=== PATIENT | male | born 1965 | race Caucasian/White ===

== ENCOUNTER → 2023-03-07 16:05 | Outpatient (REF) | payer BC, SELFPAY ==
[2023-03-07 17:25] LABS: % Basophils 0.6 % (0-2); % Eosinophils 1.8 % (0-6); % Immature Granulocytes 0.4 % (0-0.5); % Lymphocytes 28.5 % (20.5-51.1); % Monocytes 16.9 % (1.7-9.3); % Neutrophils 51.8 % (42.2-75.2); Absolute Eosinophils 0.1 10^3/uL (0-0.7); Absolute Lymphocytes 1.4 10^3/uL (1.2-3.4); Absolute Monocytes 0.8 10^3/uL (0.1-0.6); Absolute Neutrophils 2.6 10^3/uL (1.4-6.5); Hematocrit 40.7 % (39.0-52.0); Hemoglobin 14.3 g/dL (13.0-18.0); Mean Corp Hgb Conc. 35.1 g/dL (33.0-37.0); Mean Corpuscular Hgb 33.6 pg (27.0-31.0); Mean Corpuscular Volume 95.5 fL (80.0-94.0); Mean Platelet Volume 9.5 fL (7.4-10.4); Nucleated Red Blood Cells % 0 % (-); Platelet Count 216 10^3/uL (130-400); Red Blood Cell Count 4.26 10^6/uL (4.70-6.10); Red Cell Dist. Width 12.2 % (11.5-14.5)
[2023-03-07 17:43] LABS: Urine Albumin Trace (Neg - Trace); Urine Bilirubin Negative (Negative); Urine Character Clear (Clear); Urine Color Yellow; Urine Glucose Negative (Negative); Urine Ketone Negative (Negative); Urine Leukocyte Negative (Negative); Urine Nitrite Negative (Negative); Urine Occult Blood Negative (Negative); Urine Urobilinogen Negative (Neg - 1+)
[2023-03-07 17:56] LABS: ALT (SGPT) 44 U/L (0-50); AST (SGOT) 68 U/L (17-59); Albumin 4.5 g/dl (3.5-5.0); Alkaline Phosphatase 94 U/L (38-126); Blood Urea Nitrogen 13 mg/dl (9-20); Calcium 9.9 mg/dl (8.4-10.2); Carbon Dioxide 29 mmol/L (22-30); Chloride 98 mmol/L (98-107); GGTP 251 U/L (15-73); Glucose 79 mg/dl (70-99); HDL Cholesterol 103 mg/dl; LDL Cholesterol, Calculated 124 mg/dl; Potassium 4.5 mmol/L (3.5-5.1); Sodium 133 mmol/L (135-145); Total Bilirubin 0.8 mg/dl (0.2-1.3); Total Cholesterol 254 mg/dl (50-199); Total Protein 8.4 g/dl (6.3-8.2); Triglyceride 139 mg/dl (10-149); Very Low Density Lipoprotein 27 mg/dl (0-30); eGFR > 60.00
[2023-03-07 18:25] LABS: PSA, Total - Screen 0.36 ng/ml (0.0-4.0); TSH Reflex To Free T4 1.38 uIU/ml (0.47-4.68)
== END ==
LOC: REG 16:05
PROVIDERS: ATTENDING PHYSICIAN Family Medicine; REFERRING PHYSICIAN Internal Medicine Rheumatology
DX: Z71.89 Other specified counseling (principal); F10.10 Alcohol abuse, uncomplicated; D68.69 Other thrombophilia; I10 Essential (primary) hypertension; M06.00 Rheumatoid arthritis without rheumatoid factor, unspecified site; I48.0 Paroxysmal atrial fibrillation; N41.0 Acute prostatitis; R74.8 Abnormal levels of other serum enzymes
CPT/HCPCS: 36415; 80053; 80061; 81003; 82977; 84443; 85025; G0103

== ENCOUNTER → 2023-12-01 10:40 | Outpatient (REF) | payer BC, SELFPAY ==
[2023-12-01 11:43] LABS: % Basophils 0.5 % (0-2); % Eosinophils 5.4 % (0-6); % Immature Granulocytes 0.3 % (0-0.5); % Lymphocytes 40.6 % (20.5-51.1); % Monocytes 16.8 % (1.7-9.3); % Neutrophils 36.4 % (42.2-75.2); Absolute Eosinophils 0.2 10^3/uL (0-0.7); Absolute Lymphocytes 1.6 10^3/uL (1.2-3.4); Absolute Monocytes 0.7 10^3/uL (0.1-0.6); Absolute Neutrophils 1.4 10^3/uL (1.4-6.5); Hematocrit 40.7 % (39.0-52.0); Hemoglobin 14.5 g/dL (13.0-18.0); Mean Corp Hgb Conc. 35.6 g/dL (33.0-37.0); Mean Corpuscular Hgb 34.9 pg (27.0-31.0); Mean Corpuscular Volume 97.8 fL (80.0-94.0); Mean Platelet Volume 9.5 fL (7.4-10.4); Nucleated Red Blood Cells % 0 % (-); Platelet Count 206 10^3/uL (130-400); Red Blood Cell Count 4.16 10^6/uL (4.70-6.10); Red Cell Dist. Width 11.8 % (11.5-14.5); White Blood Cell Count 3.9 10^3/uL (4.8-10.8)
[2023-12-01 11:52] LABS: Erythrocyte Sed Rate 25 mm/hour (0-20)
[2023-12-01 12:37] LABS: ALT (SGPT) 65 U/L (0-50); AST (SGOT) 118 U/L (17-59); Albumin 3.8 g/dl (3.5-5.0); Alkaline Phosphatase 120 U/L (38-126); Blood Urea Nitrogen 4 mg/dl (9-20); Calcium 9.2 mg/dl (8.4-10.2); Carbon Dioxide 28 mmol/L (22-30); Chloride 96 mmol/L (98-107); Glucose 82 mg/dl (70-99); Potassium 5.1 mmol/L (3.5-5.1); Sodium 133 mmol/L (135-145); Total Bilirubin 0.6 mg/dl (0.2-1.3); Total Protein 7.2 g/dl (6.3-8.2); eGFR > 60.00
== END ==
LOC: REG 10:40
PROVIDERS: ATTENDING PHYSICIAN Internal Medicine Rheumatology; FAMILY PHYSICIAN Family Medicine
DX: M06.00 Rheumatoid arthritis without rheumatoid factor, unspecified site (principal); Z79.899 Other long term (current) drug therapy
CPT/HCPCS: 36415; 80053; 85025; 85652; 86140

== ENCOUNTER → 2023-12-22 10:09 | Outpatient (REF) | payer BC, SELFPAY | LOC: RCS 10:09 | PROVIDERS: ATTENDING PHYSICIAN Internal Medicine Cardiovascular Disease; FAMILY PHYSICIAN Family Medicine | DX: I48.11 Longstanding persistent atrial fibrillation (principal) | CPT/HCPCS: 93306 ==

== ENCOUNTER → 2024-05-10 11:30 | Outpatient (REF) | payer BC, SELFPAY ==
[2024-05-10 12:38] LABS: % Basophils 0.4 % (0-2); % Eosinophils 3.1 % (0-6); % Immature Granulocytes 0.4 % (0-0.5); % Lymphocytes 26.6 % (20.5-51.1); % Monocytes 11.9 % (1.7-9.3); % Neutrophils 57.6 % (42.2-75.2); Absolute Eosinophils 0.2 10^3/uL (0-0.7); Absolute Lymphocytes 1.3 10^3/uL (1.2-3.4); Absolute Monocytes 0.6 10^3/uL (0.1-0.6); Absolute Neutrophils 2.8 10^3/uL (1.4-6.5); Mean Corp Hgb Conc. 35.1 g/dL (33.0-37.0); Mean Corpuscular Hgb 34.7 pg (27.0-31.0); Mean Corpuscular Volume 98.7 fL (80.0-94.0); Mean Platelet Volume 9.6 fL (7.4-10.4); Nucleated Red Blood Cells % 0 % (-); Platelet Count 231 10^3/uL (130-400); Red Blood Cell Count 3.75 10^6/uL (4.70-6.10); Red Cell Dist. Width 11.6 % (11.5-14.5); White Blood Cell Count 4.8 10^3/uL (4.8-10.8)
[2024-05-10 13:13] LABS: Erythrocyte Sed Rate 36 mm/hour (0-20)
[2024-05-10 13:25] LABS: ALT (SGPT) 63 U/L (0-50); AST (SGOT) 65 U/L (17-59); Albumin 3.9 g/dl (3.5-5.0); Alkaline Phosphatase 100 U/L (38-126); Blood Urea Nitrogen 9 mg/dl (9-20); Calcium 9.2 mg/dl (8.4-10.2); Carbon Dioxide 27 mmol/L (22-30); Chloride 101 mmol/L (98-107); Glucose 106 mg/dl (70-99); Potassium 4.6 mmol/L (3.5-5.1); Sodium 134 mmol/L (135-145); Total Bilirubin 0.6 mg/dl (0.2-1.3); Total Protein 7.1 g/dl (6.3-8.2); eGFR > 60.00
== END ==
LOC: RAD 11:30
PROVIDERS: ATTENDING PHYSICIAN Internal Medicine Rheumatology; FAMILY PHYSICIAN Family Medicine
DX: L40.50 Arthropathic psoriasis, unspecified (principal)
CPT/HCPCS: 36415; 73560; 73565; 80053; 85025; 85652; 86140

== ENCOUNTER 2024-06-06 13:31 | Inpatient (IN) | payer BC, SELFPAY ==
[2024-06-06] VITALS (10 sets, daily range): BP systolic 90–125; BP diastolic 67–82; BMI 25.9; BMI 25.2
--- NOTE | 2024-06-06 09:08 | ED.GENMED ---
History of Present Illness
General
Chief Complaint: Weakness
Source: patient
Exam Limitations: none
Time Seen by Provider: 06/06/24 08:50
History of Present Illness
History of Present Illness:
59-year-old male with history of A-fib on Eliquis, history of rheumatoid arthritis on Enbrel presents with diffuse myalgias recent fever fatigue. He had urinary symptoms earlier this week with urgency and dysuria. He was diagnosed with a UTI by
the family doctor and started on Cipro. He has been on Cipro for 3 days. Fever has improved however he notes more discomfort throughout his joints and body. He notes a slight runny nose and cough. No chest pain or shortness of breath. The onset
of his illness he also had an episode of loose stool. Temperature as high as 101.4 at home. No other complaints at this time
Past History
Past History
ED Past Medical History: Arrthythmia (Atrial fibrillation), GERD, HTN, Hypercholesterolemia and Other (Peptic ulcer disease, psoriatic arthritis)
ED Past Surgical History: None
Social History
Tobacco: Smoker
Alcohol: Daily
Drug: None
Personal:
Living: with family
Employment: Employed ([employer])
Phy Exam
Physical Exam
Physical Exam:
General: Well-appearing male no acute respiratory distress
HEENT: Normocephalic atraumatic
Heart: Regular rate and rhythm
Lungs: Clear no wheeze abdomen is soft nontender nondistended
No costovertebral angle tenderness
Extremities: No cyanosis
Course
Orders/Labs/Results
Orders:
Orders
06/06/24 09:08
CR Chest - 2 Views Urgent
Comment:
Reason For Exam: fever
06/06/24 09:16
COVID-19 Antigen Urgent
Source: Nasal Swab
CRP [C-Reactive Protein] Urgent
Complete Blood Count/With Diff Urgent
Comprehensive Metabolic Panel Urgent
Lyme Progressive Urgent
Sed Rate [Erythrocyte Sed Rate] Urgent
Blood Culture Q30M
LORENZO Source: Blood/Venous
Specimen Description:
Blood Culture Q30M
LORENZO Source: Blood/Venous
Specimen Description:
Influenza A+B Rapid Molecular Urgent
LORENZO Source: Nasal Swab
Specimen Description:
06/06/24 09:17
Lactic Acid Urgent
Urinalysis Reflex To Culture Urgent
Date Specimen was Collected: 06/06/24
Time Specimen was Collected: 09:10
Urine Microscopic Reflex Cult Urgent
Urine Culture Urgent
LORENZO Source: U
Specimen Description:
Date Specimen was Collected: 06/06/24
Time Specimen was Collected: 09:10
06/06/24 12:47
CefTRIAXone [Rocephin] 1,000 mg IV NOW STA
NSS 1000mL Bolus over 1 hr 0.9% Sodium Chloride 1000 ml [Nss] 1,000 ml IV BOLUS
Abnormal Lab Results
06/06/24 06/06/24
09:16 09:17
RBC 3.71 L 10^6/uL
(4.70-6.10)
Hct 36.4 L %
(39.0-52.0)
MCV 98.1 H fL
(80.0-94.0)
MCH 35.0 H pg
(27.0-31.0)
Lymphocytes % 19.8 L %
(20.5-51.1)
ESR 58 H mm/hour
(0-20)
Sodium 132 L mmol/L
(135-145)
C-Reactive Protein 119.50 H mg/L
(0.0-10.00)
Albumin 3.4 L g/dl
(3.5-5.0)
Ur Occult Blood Reflex 3+ A
(Negative)
Leukocyte Esterase Rfl 2+ A
(Negative)
Urine RBC 7-10 A /HPF
(0-2)
Urine WBC (Reflex) 21-25 A /HPF
(0-5)
Urine Bacteria (Reflex) Few A
(Negative)
Urine Albumin (Reflex) 2+ A
(Neg - Trace)
06/06/24 09:16
06/06/24 09:16
Vital Signs
Initial and Last Documented VS:
Initial Vital Signs
Temp Pulse Resp BP Pulse Ox
99.0 F 95 18 125/75 97
06/06/24 07:28 06/06/24 07:28 06/06/24 07:28 06/06/24 07:28 06/06/24 07:28
Last Documented Vital Signs
Temp Pulse Resp BP Pulse Ox
98.5 F 95 20 110/72 97
06/06/24 09:35 06/06/24 09:35 06/06/24 09:35 06/06/24 11:13 06/06/24 11:30
MDM/Problems Addressed
Differential Diagnosis Includes:
Patient with diffuse myalgias recent fever history of rheumatoid arthritis recent treatment for urinary tract infection. Consider extension of UTI versus sepsis versus flare of her RA versus flu or COVID. Check labs including blood cultures lactic
acid urinalysis inflammatory marker
*Critical Care Note
Total Time (30-74mins, 75-104mins- exclusive of procedures): Not Applicable
Update Note
Update Note:
CRP 119. White blood cell count normal. Patient still with myalgias and UTI present on urinalysis. Patient is immunosuppressed reported recent fever on Cipro not responding to oral antibiotics. Fluids ordered will order Rocephin admit to hospice
ED Attending Note
-
Portions of this chart may have been created with voice recognition software.� Occasional wrong word or��sound alike� substitutions may have occurred due to the inherent limitations of voice recognition software.
Discharge Plan
Departure
Patient Disposition: Admit
Date of Disposition: 06/06/24
Time of Disposition: 12:48
Presentation/result/management discussed w/ accepting MD/DO: Hospitalist
Discharge Problem:
Acute UTI
Prescriptions:
No Action
multivitamin with folic acid [Tab-A-Jay] 1 TABLET tablet
1 tab PO DAILY
omeprazole magnesium [Prilosec OTC] 20 MG tablet,delayed release (DR/EC)
20 mg PO BID Qty: 60 2RF
vitamin B complex 1 TAB tablet
1 tab PO DAILY
melatonin 5 MG tablet
5 mg PO HS
co Q10-red yeast rice 1 EACH capsule
2 ea PO DAILY
omega 8-mvl-luz-fish oil [Fish Oil] 1 EACH capsule
1 ea PO DAILY
biotin 5,000 MCG tablet,disintegrating
5,000 mcg PO DAILY
prednisone 5 MG tablet
2.5 mg PO HS
Eliquis 5 MG tablet
5 mg PO BID
cholecalciferol (vitamin D3) 5,000 UNIT tablet,disintegrating
5,000 unit PO BID
diltiazem HCl 120 MG capsule,extended release 24hr
120 mg PO DAILY Qty: 30 5RF
Rx Instructions:
your dose of cardizem has decreased
lisinopril 5 MG tablet
5 mg PO DAILY Qty: 30 5RF
dofetilide 500 MCG capsule
500 mcg PO Q12 Qty: 60 5RF
sildenafil 50 mg Tablet
50 mg PO DAILY
Referrals:
Isauro Huizar MD [Family Provider] -
Interventions
Interventions:
*Risk Screen - Suicide Last Done: 06/06/24 07:28
*General Assessment Last Done: 06/06/24 07:28
*Neglect/Abuse Screening Last Done: 06/06/24 09:35
*ED- Fall Risk Assessment Last Done: 06/06/24 09:35
*ED COVID-19 Vaccine History Last Done: 06/06/24 07:28
ED- Cardiac Assessment Last Done: 06/06/24 09:35
ED- Neurological Assessment Last Done: 06/06/24 09:35
ED- Pulmonary Assessment Last Done: 06/06/24 09:35
Discharge Date and Time
Print Language: SIER[place] LEONE[place]
[2024-06-06 09:56] LABS: Lactic Acid 0.9 mmol/L (0.7-2.0)
[2024-06-06 10:01] LABS: ALT (SGPT) 31 U/L (0-50); AST (SGOT) 44 U/L (17-59); Albumin 3.4 g/dl (3.5-5.0); Alkaline Phosphatase 85 U/L (38-126); Blood Urea Nitrogen 14 mg/dl (9-20); Calcium 9.2 mg/dl (8.4-10.2); Carbon Dioxide 24 mmol/L (22-30); Chloride 100 mmol/L (98-107); Estimated Creatinine Clearance 92 ml/min; Glucose 85 mg/dl (70-99); Potassium 4.1 mmol/L (3.5-5.1); Sodium 132 mmol/L (135-145); Total Bilirubin 1.2 mg/dl (0.2-1.3); Total Protein 6.9 g/dl (6.3-8.2); eGFR > 60.00
[2024-06-06 10:03] LABS: % Eosinophils 0.7 % (0-6); % Immature Granulocytes 0.3 % (0-0.5); % Lymphocytes 19.8 % (20.5-51.1); % Monocytes 6.5 % (1.7-9.3); % Neutrophils 72.7 % (42.2-75.2); Absolute Lymphocytes 1.2 10^3/uL (1.2-3.4); Absolute Monocytes 0.4 10^3/uL (0.1-0.6); Absolute Neutrophils 4.2 10^3/uL (1.4-6.5); Hematocrit 36.4 % (39.0-52.0); Mean Corp Hgb Conc. 35.7 g/dL (33.0-37.0); Mean Corpuscular Volume 98.1 fL (80.0-94.0); Mean Platelet Volume 10.1 fL (7.4-10.4); Nucleated Red Blood Cells % 0 % (-); Platelet Count 173 10^3/uL (130-400); Red Blood Cell Count 3.71 10^6/uL (4.70-6.10); Red Cell Dist. Width 11.7 % (11.5-14.5); White Blood Cell Count 5.8 10^3/uL (4.8-10.8)
[2024-06-06 10:11] LABS: COVID-19 Antigen Negative (Negative)
[2024-06-06 12:12] LABS: Urine Albumin 2+ (Neg - Trace); Urine Bilirubin Negative (Negative); Urine Character Clear (Clear); Urine Color Yellow; Urine Glucose Negative (Negative); Urine Ketone Negative (Negative); Urine Leukocyte 2+ (Negative); Urine Nitrite Negative (Negative); Urine Occult Blood 3+ (Negative); Urine Urobilinogen Negative (Neg - 1+); Urine pH 6.5 (5.0-9.0)
[2024-06-06 12:30] LABS: Urine White Cell 21-25 /HPF (0-5)
[2024-06-06 12:31] LABS: Urine Bacteria Few (Negative)
[2024-06-06 12:34] LABS: Erythrocyte Sed Rate 58 mm/hour (0-20)
--- NOTE | 2024-06-06 12:58 | HPS.HSE ---
Addendum entered and electronically signed by ASAF Frey 06/06/24 15:06:
patient not on tikosyn and prednisone;
Original Note:
Family Physician
-
Family Physician: Isauro Huizar
Chief Complaint
-
generalized achiness
urinary burning and urgency
History of Present Illness
59-year-old male with history of A-fib on Eliquis, history of rheumatoid arthritis on Enbrel, hypertension, GERD presents with diffuse myalgias recent fever fatigue. Patient started with urinary urgency and dysuria Monday afternoon. Patient was
evaluated by PCP on Monday and was started on Cipro for 3 days. Patient took 2 doses already. Patient started having fever of 101 since Monday. He vomited on Monday. Denied any diarrhea, constipation. Patient denies any headache, dizzy or
syncope. Patient denied abdominal pain. Patient denied chest pain or short of breath. He noted no worsening body aches. Patient stated runny nose and sneezing for past few days due to seasonal allergies.
Patient tested positive for UA. Started on ceftriaxone. Admitting for further management
Medical History
Past Medical History
Past Medical History: Reports Other
Additional Past Medical History:
GI bleed
Duodenal ulcer
A-fib
Deficiency anemia
GERD
Psoriasis
Hypertension
Hyperlipidemia
Rheumatoid arthritis
Past Surgical History: Reports Other
Additional Past Surgical History:
Cardiac ablation, cardioversion
Social History
Tobacco: Smoker (2 cigarettes daily)
Alcohol: Occasional
Drug: None
Personal:
Living: With Family
Family History
Family History: Not pertinent
Allergies / Home Medications
Allergies reflects when Allergies were last updated in [employer].
Home Medications with original date entered in [employer]
Allergy/Medication List:
Allergies
Allergy/AdvReac Type Severity Reaction Status Date / Time
celecoxib [From Celebrex] Allergy Rash Verified 06/06/24 07:32
NSAIDS (Non-Steroidal AdvReac Unknown Verified 06/06/24 07:32
Anti-Inflamma
Home Medications
multivitamin with folic acid 400 mcg tablet (Tab-A-Jay) 1 tab PO DAILY 08/21/17
omeprazole magnesium 20 mg tablet,delayed release (Prilosec OTC) 20 mg PO BID ##60 08/24/17
biotin 5,000 mcg disintegrating tablet 5,000 mcg PO DAILY 12/05/17
coenzyme Q10-red yeast rice 60 mg-600 mg capsule 2 ea PO DAILY 12/05/17
melatonin 5 mg tablet 5 mg PO HS 12/05/17
omega 6-zfc-qln-fish oil 300 mg-1,000 mg capsule (Fish Oil) 1 ea PO DAILY 12/05/17
vitamin B complex 1 tab PO DAILY 12/05/17
apixaban 5 mg tablet (Eliquis) 5 mg PO BID 04/13/18
cholecalciferol (vitamin D3) 125 mcg (5,000 unit) disintegrating tablet 5,000 unit PO BID 04/13/18
prednisone 5 mg tablet 2.5 mg PO HS 04/13/18
diltiazem HCl 120 mg capsule,extended release 24 hr 120 mg PO DAILY #30 caps 11/27/19
dofetilide 500 mcg capsule 500 mcg PO Q12 #60 caps 11/27/19
lisinopril 5 mg tablet 5 mg PO DAILY #30 tabs 11/27/19
sildenafil 50 mg tablet 50 mg PO DAILY 06/06/24
Review of Systems
-
Constitutional: Reports Fatigue
EENT: Reports No Symptoms
Respiratory: Reports No Symptoms
Cardiac: Reports No Symptoms
Abdomen/GI: Reports Nausea and Vomiting
: Reports No Symptoms and Dysuria
Musculoskeletal: Reports No Symptoms
Skin: Reports No Symptoms
Neurological: Reports No Symptoms
Endocrine: Reports No Symptoms
Hematologic/Lymphatic: Reports No Symptoms
Psych: Reports No Symptoms
Physical Exam
Vital Signs
Vital Signs
Temp Pulse Resp BP Pulse Ox
98.5 F 95 20 110/72 97
06/06/24 09:35 06/06/24 09:35 06/06/24 09:35 06/06/24 11:13 06/06/24 11:30
Physical Exam
General: Well Developed, Well Nourished and No Apparent Distress
HEENT: NormoCephalic, Moist mucous membranes and Atraumatic
Respiratory: Clear
Cardiac: S1/S2 and Regular Rhythm; No Murmur or Rub
GI: Soft, Non Tender, Non Distended and Normal Bowel Sounds; No Organomegaly
Rectal: Deferred by Provider
Musculoskeletal: No Clubbing, No Cyanosis and No Edema
Skin: No Rash
Neuro: AO x 3 and Nonfocal/grossly intact
Psych: Calm
Laboratory Results
-
06/06/24 09:16
06/06/24 09:16
Laboratory Results
Lactic Acid 0.9 mmol/L (0.7-2.0) 06/06/24 09:17
Total Bilirubin 1.2 mg/dl (0.2-1.3) 06/06/24 09:16
AST 44 U/L (17-59) 06/06/24 09:16
ALT 31 U/L (0-50) 06/06/24 09:16
Alkaline Phosphatase 85 U/L (38-126) 06/06/24 09:16
Data Reviewed
-
Diagnostic Radiology: Report Reviewed by me
Lab Data: Labs Reviewed by me
Impression/Plan
-
# Fever secondary to urinary tract infection
- Blood and urine culture sent from the ER
- IV ceftriaxone continued
- Tylenol as needed for fever and pain
# Chronic hyponatremia
- Sodium 132
- Continue to monitor BMP in a.m.
# Paroxysmal A-fib
- EKG
- Diltiazem, Tikosyn and Eliquis continue
# History of rheumatoid arthritis
- On prednisone and Enbrel
# Hypertension
- Lisinopril continued
# GERD
- PPI continued
# Nicotine dependence
- Smokes 2 cigarettes daily
- Denied nicotine patch
# DVT prophylaxis
- Lovenox subcu
# CODE STATUS
- Full code
[2024-06-06 13:23] LABS: Lyme Antibody Screen, EIA Presump. Positive (Negative)
[2024-06-06] MEDS: ROCEPHIN 1000 MG IV (13:24)
[2024-06-06] MEDS: NSS 1000 IV (13:24)
--- NOTE | 2024-06-06 13:52 | W.PN.UPDATE ---
Update Note
Progress Note Update
This is an addendum to the H&P written by Uma Kellogg on 06/06/2024.� Patient seen examined independently with BUSINESS OFFICE COORDINATOR.
59-year-old male past medical history of rheumatoid arthritis, atrial fibrillation on Eliquis, hypertension, UTIs, seasonal allergies, presenting with myalgias, fever and fatigue.� With urinary frequency and discomfort earlier this week.��Few
episodes of�vomiting.� Started on ciprofloxacin for 3 days ago.� Slight runny nose without cough secondary to allergies.�
Vital signs normal here.� Labs unremarkable apart from elevated CRP.
Chest x-ray unremarkable.� COVID and flu negative.�Urinalysis shows 21-25 WBC, +2 leukocyte esterase.��
Patient with urinary tract infection. Likely�viral URI.� IV fluids were given.� Blood cultures, urine culture pending.� Ceftriaxone. Consider�short course of prednisone for RA flare if no improvement in joint pains.�
--- NOTE | 2024-06-06 13:54 | EDRN ---
this RN called the receiving unit and notified them that paper report was going to be tubed up
[2024-06-06] MEDS: TYLENOL 650 MG PO ×2 (15:03→21:22)
--- NOTE | 2024-06-06 17:15 | PTCARENOTE ---
Received pt from ED. AAOx3. Ambulatory to bed without assistance. Reports 4/10 pain at rest and 8/10 pain with ambulation in b/l ankle from RA flare up. All joints affected. Pt oriented to room, call montesinos within reach, no complaints at this time.
[2024-06-06] MEDS: MELATONIN 5 MG PO (21:22)
[2024-06-06] MEDS: ELIQUIS 5 MG PO (21:22)
[2024-06-07 03:32] VITALS: BP 118/68
[2024-06-07 06:56] LABS: Blood Urea Nitrogen 10 mg/dl (9-20); Calcium 8.6 mg/dl (8.4-10.2); Carbon Dioxide 23 mmol/L (22-30); Chloride 104 mmol/L (98-107); Estimated Creatinine Clearance 92 ml/min; Glucose 94 mg/dl (70-99); Potassium 4.1 mmol/L (3.5-5.1); Sodium 136 mmol/L (135-145); eGFR > 60.00
[2024-06-07 07:50] VITALS: BP 143/96
[2024-06-07] MEDS: B COMPLEX w/VITAMIN C 1 CAPLET PO (08:06)
[2024-06-07] MEDS: THERAGRAN 1 TABLET PO (08:06)
[2024-06-07] MEDS: VITAMIN D3 (cholecalciferol) 50 MCG PO (08:06)
[2024-06-07] MEDS: PROTONIX 40 MG PO (08:06)
[2024-06-07] MEDS: CARDIZEM CD 120 MG PO (08:06)
[2024-06-07] MEDS: ZESTRIL 2.5 MG PO (08:07)
[2024-06-07] MEDS: ELIQUIS 5 MG PO ×2 (08:07→20:15)
[2024-06-07 11:18] VITALS: BP 110/68
--- NOTE | 2024-06-07 12:02 | CM ---
Spoke with patient's to obtain information for assessment. She stated that patent lives with her in a two story home with four steps to enter. She described him as independent with ADLs, personal care, dressing and bathing. He can do household
chores, cook, clean and do laundry. Patient drives and can get himself to all of his appointments and do all of his own shopping. He has no DME. He has never had VN. He has not been to a SNF in the past.
Patient has a prescription plan and uses, [facility] in [place] [address] for all of his medications. He has also used [facility].
Patient's PCP is, Isauro Huizar.
Plan: Case management will continue to follow and assist with discharge planning. Most likely home no needs.
[2024-06-07] MEDS: ROCEPHIN 1000 MG IV (14:29)
[2024-06-07] MEDS: STERILE WATER FOR INJECTION 10 ML IV (14:29)
[2024-06-07 15:53] VITALS: BP 121/77
--- NOTE | 2024-06-07 17:06 | W.PN.HOSP.TC ---
Today's Communication/Plan
-
continue current Tx with potential dc tomorrow
Has received 2 doses of Ceftriaxone so far
Assessment / Plan
Assessment / Plan
# Fever secondary to urinary tract infection
- Blood and urine culture sent from the ER
- IV ceftriaxone continued
- Tylenol as needed for fever and pain
Pt has a lot of urgency symptoms and at night has difficulty passing urine. Symptoms are most consistent with prostatitis. He is feeling better, would like him to receive at least one more dose of IV abx prior to considering dc. He voiced his
understanding
# Chronic hyponatremia
- Sodium 132-->136
- better
# Paroxysmal A-fib
- EKG
- Diltiazem, and Eliquis continue
# History of rheumatoid arthritis
- On prednisone and Enbrel
# Hypertension
- Lisinopril continued
# GERD
- PPI continued
# Nicotine dependence
- Smokes 2 cigarettes daily
- Denied nicotine patch
# DVT prophylaxis
- Lovenox subcu
# CODE STATUS
- Full code
Anticipated Discharge: 24 - 48 hours
Subjective/Interval History
-
Date of Service: June 07, 2024
Generally feels better and is asking about being discharged
Objective Data
-
Labs:
Laboratory Results
06/07/24
05:46
Sodium 136
Potassium 4.1
Chloride 104
Carbon Dioxide 23
BUN 10
Creatinine 0.8
Glucose 94
Calcium 8.6
Vital Signs:
Vital Signs
Temp Pulse Resp BP Pulse Ox
98 F 74 16 121/77 98
06/07/24 15:53 06/07/24 15:53 06/07/24 15:53 06/07/24 15:53 06/07/24 15:53
I&O
06/06/24 06/07/24 06/08/24
06:59 06:59 06:59
Intake Total 480 / 480 800 / 800
Balance 480 / 480 800 / 800
Review of Systems
-
History Source: Patient and Coordinated Provider
Constitutional: Denies Fever
EENT: Reports No Symptoms Reported
Respiratory: Reports No Symptoms
Cardiac: Reports No Symptoms
Abdomen/GI: Reports No Symptoms
Genitourinary: Reports Dysuria (better), Frequency and Difficulty Voiding (especially at night)
Physical Exam
-
General: Well Developed, Well Nourished and No Apparent Distress
HEENT: Normocephalic, Atraumatic and Moist Mucous Membranes
Respiratory: Clear to Auscultation; Negative Wheezes, Rales or Rhonchi
Cardiac: Regular Rhythm and S1/S2
GI: Soft, Nontender and Nondistended
Musculoskeletal: No Clubbing, No Cyanosis and No Edema
Neuro: Awake, Alert and Oriented
[2024-06-07 19:49] VITALS: BP 143/91
[2024-06-07] MEDS: MELATONIN 5 MG PO (20:15)
[2024-06-07] MEDS: NON-FORMULARY ITEM 1 UNIT SC (20:15)
[2024-06-07] MEDS: TYLENOL 650 MG PO (20:33)
[2024-06-07 23:17] VITALS: BP 138/85
[2024-06-08 03:31] VITALS: BP 132/79
[2024-06-08 07:10] LABS: Blood Urea Nitrogen 9 mg/dl (9-20); Calcium 9.1 mg/dl (8.4-10.2); Carbon Dioxide 27 mmol/L (22-30); Chloride 102 mmol/L (98-107); Estimated Creatinine Clearance 105 ml/min; Glucose 94 mg/dl (70-99); Potassium 4.3 mmol/L (3.5-5.1); Sodium 135 mmol/L (135-145); eGFR > 60.00
[2024-06-08 07:50] VITALS: BP 141/95
[2024-06-08] MEDS: ZESTRIL 2.5 MG PO (08:03)
[2024-06-08] MEDS: THERAGRAN 1 TABLET PO (08:03)
[2024-06-08] MEDS: CARDIZEM CD 120 MG PO (08:03)
[2024-06-08] MEDS: ELIQUIS 5 MG PO (08:03)
[2024-06-08] MEDS: PROTONIX 40 MG PO (08:03)
[2024-06-08] MEDS: VITAMIN D3 (cholecalciferol) 50 MCG PO (08:03)
[2024-06-08] MEDS: B COMPLEX w/VITAMIN C 1 CAPLET PO (08:04)
[2024-06-08 11:15] VITALS: BP 121/71
--- NOTE | 2024-06-08 11:41 | W.PN.HOSP.TC ---
Today's Communication/Plan
-
dc to home
Assessment / Plan
Assessment / Plan
# Fever secondary to urinary tract infection/Prostatitis
- Blood and urine culture sent from the ER - neg
- IV ceftriaxone final dose today
- Tylenol as needed for fever and pain
Pt has a lot of urgency symptoms and at night has difficulty passing urine. Symptoms are most consistent with prostatitis. He is feeling better, dose this afternoon, then dc. Reviewed with
# Chronic hyponatremia
- Sodium 132-->136-->135
- better
# Paroxysmal A-fib
- EKG
- Diltiazem, and Eliquis continue
# History of rheumatoid arthritis
- On Enbrel (not on Prednisone)
# Hypertension
- Lisinopril continued
# GERD
- PPI continued
# Nicotine dependence
- Smokes 2 cigarettes daily, states will stop smoking
- Denied nicotine patch
# DVT prophylaxis
- Lovenox subcu
# CODE STATUS
- Full code
dc to home after next dose
see dictate note
More than 30 minutes spent in discharge including
Final examination of the patient
Summarizing hospital stay
Instructions for continuing care to all relevant caregivers
Preparation of discharge records, prescriptions, and referral forms
Total time spent (in minutes): 45
Anticipated Discharge: Today
Subjective/Interval History
-
Date of Service: June 08, 2024
Feels better
Objective Data
-
Labs:
Laboratory Results
06/08/24 06/08/24
05:06 06:12
Sodium Cancelled 135
Potassium Cancelled 4.3
Chloride Cancelled 102
Carbon Dioxide Cancelled 27
BUN Cancelled 9
Creatinine Cancelled 0.7
Glucose Cancelled 94
Calcium Cancelled 9.1
Vital Signs:
Vital Signs
Temp Pulse Resp BP Pulse Ox
98.4 F 76 16 121/71 98
06/08/24 11:15 06/08/24 11:15 06/08/24 11:15 06/08/24 11:15 06/08/24 11:15
I&O
06/07/24 06/08/24 06/09/24
06:59 06:59 06:59
Intake Total 480 / 480 1939
Balance 480 / 480 1939
Review of Systems
-
History Source: Patient and Coordinated Provider
Constitutional: Denies Fever
EENT: Reports No Symptoms Reported
Respiratory: Reports No Symptoms
Cardiac: Reports No Symptoms
Abdomen/GI: Reports No Symptoms
Genitourinary: Reports Dysuria (better), Frequency (better) and Difficulty Voiding (especially at night prior to admission, better)
Physical Exam
-
General: Well Developed, Well Nourished and No Apparent Distress
HEENT: Normocephalic, Atraumatic and Moist Mucous Membranes
Respiratory: Clear to Auscultation; Negative Wheezes, Rales or Rhonchi
Cardiac: Regular Rhythm and S1/S2
GI: Soft, Nontender and Nondistended
Musculoskeletal: No Clubbing, No Cyanosis and No Edema
Neuro: Awake, Alert and Oriented
--- NOTE | 2024-06-08 12:07 | W.DS.TRANS ---
DC Summary - [facility]
-
Discharge Instructions:
Sleep Apnea Risk Intermediate
Discharge Diagnosis/Procedures Prostatitis
Diet Regular
Activity No restrictions
Driving Restrictions No driving for 24 hours
Bathing Restrictions None
Instructions:
Stand-Alone Forms:
Changes to Home Medications: Yes
Discharge Medications:
DC Medications w/original date entered in [employer]
multivitamin with folic acid 400 mcg tablet (Tab-A-Jay) 1 tab PO DAILY Supplement 08/21/17
coenzyme Q10-red yeast rice 60 mg-600 mg capsule 1 ea PO DAILY Supplement 12/05/17
melatonin 5 mg tablet 10 mg PO HS Sleep 12/05/17
omega 0-xew-uts-fish oil 300 mg-1,000 mg capsule (Fish Oil) 1 ea PO DAILY Supplement 12/05/17
vitamin B complex 1 tab PO DAILY Supplement 12/05/17
apixaban 5 mg tablet (Eliquis) 5 mg PO BID Blood Clot Prevention/Tx 04/13/18
diltiazem HCl 120 mg capsule,extended release 24 hr 120 mg PO DAILY #30 caps 11/27/19
acetaminophen 325 mg tablet (Tylenol) 650 mg PO Q6HPRN PRN fever 06/06/24
biotin 1 mg tablet 1 mg PO DAILY Supplement 06/06/24
cholecalciferol (vitamin D3) 50 mcg (2,000 unit) tablet (Vitamin D3) 50 mcg PO DAILY Supplement 06/06/24
etanercept 25 mg/0.5 mL (0.5 mL) subcutaneous syringe (Enbrel) 25 mg SC FR Infection 06/06/24
lisinopril 5 mg tablet 2.5 mg PO DAILY Blood Pressure 06/06/24
omeprazole magnesium 20 mg tablet,delayed release (Prilosec OTC) 40 mg PO DAILY Gastrointestinal Issue 06/06/24
sildenafil 50 mg tablet 50 mg PO DAILYPRN PRN ed 06/06/24
ciprofloxacin HCl 500 mg tablet (Cipro) 500 mg PO Q12H #20 tabs 06/08/24
polyethylene glycol 3350 17 gram oral powder packet 17 g PO DAILYPRN PRN constipation #0 ea 06/08/24
Home Medication Changes
Cipro added for UTI
Pending Results: No
[2024-06-08] MEDS: STERILE WATER FOR INJECTION 10 ML IV (13:16)
[2024-06-08] MEDS: ROCEPHIN 1000 MG IV (13:16)
[2024-06-10 00:25] LABS: Lyme Ab Western Blot IgG Positive (Negative); Lyme Ab Western Blot IgM Negative (Negative)
== END 2024-06-08 14:01 | disposition home or self-care (01) | DRG 690 ==
LOC: 4 EAST ACU 13:31
PROVIDERS: Physician Assistant; Registered Nurse; ADMITTING PHYSICIAN Hospitalist; ATTENDING PHYSICIAN Internal Medicine; EMERGENCY PHYSICIAN Emergency Medicine; FAMILY PHYSICIAN Family Medicine
DX: N39.0 Urinary tract infection, site not specified (principal); E87.1 Hypo-osmolality and hyponatremia; Z11.52 Encounter for screening for COVID-19; F17.210 Nicotine dependence, cigarettes, uncomplicated; I48.0 Paroxysmal atrial fibrillation; M06.9 Rheumatoid arthritis, unspecified; K21.9 Gastro-esophageal reflux disease without esophagitis; I10 Essential (primary) hypertension
CPT/HCPCS: 71046; 80048; 80053; 81003; 81015; 83605; 85025; 85652; 86140; 86617; 86618; 87040; 87086; 87502; 87811; 93005; 99285

== ENCOUNTER → 2024-06-21 11:24 | Outpatient (REF) | payer BC, SELFPAY | LOC: RAD 11:24 | PROVIDERS: ATTENDING PHYSICIAN Internal Medicine Rheumatology; FAMILY PHYSICIAN Family Medicine | DX: R79.89 Other specified abnormal findings of blood chemistry (principal) | CPT/HCPCS: 76700 ==

== ENCOUNTER → 2024-07-12 12:50 | Outpatient (REF) | payer BC, SELFPAY | LOC: HWRAD 12:50 | PROVIDERS: ATTENDING PHYSICIAN Family Medicine | DX: Z87.891 Personal history of nicotine dependence (principal) | CPT/HCPCS: 71271 ==

== ENCOUNTER → 2024-09-30 17:04 | Outpatient (REF) | payer BC, SELFPAY ==
[2024-09-30 17:56] LABS: Hematocrit 38.7 % (39.0-52.0); Hemoglobin 13.3 g/dL (13.0-18.0); Mean Corp Hgb Conc. 34.4 g/dL (33.0-37.0); Mean Corpuscular Volume 96.5 fL (80.0-94.0); Nucleated Red Blood Cells % 0 % (-); Platelet Count 177 10^3/uL (130-400); Red Cell Dist. Width 12.1 % (11.5-14.5)
[2024-09-30 18:21] LABS: ALT (SGPT) 36 U/L (0-50); AST (SGOT) 63 U/L (17-59); Albumin 3.9 g/dl (3.5-5.0); Alkaline Phosphatase 98 U/L (38-126); Blood Urea Nitrogen 10 mg/dl (9-20); Calcium 9.0 mg/dl (8.4-10.2); Carbon Dioxide 26 mmol/L (22-30); Chloride 100 mmol/L (98-107); Glucose 91 mg/dl (70-99); Potassium 5.0 mmol/L (3.5-5.1); Sodium 132 mmol/L (135-145); Total Protein 7.3 g/dl (6.3-8.2); eGFR > 60.00
[2024-09-30 18:23] LABS: C-Reactive Protein 10.10 mg/L (0.0-10.00)
== END ==
LOC: REG 17:04
PROVIDERS: ATTENDING PHYSICIAN Internal Medicine Rheumatology; FAMILY PHYSICIAN Family Medicine
DX: M25.561 Pain in right knee (principal); L40.9 Psoriasis, unspecified; R79.89 Other specified abnormal findings of blood chemistry
CPT/HCPCS: 36415; 80053; 85025; 85652; 86140

== ENCOUNTER → 2024-10-18 08:58 | Outpatient (REF) | payer BC, SELFPAY | LOC: EMG 08:58 | PROVIDERS: ATTENDING PHYSICIAN Internal Medicine Rheumatology; FAMILY PHYSICIAN Family Medicine | DX: G62.9 Polyneuropathy, unspecified (principal); R20.0 Anesthesia of skin | CPT/HCPCS: 95886; 95911 ==

== ENCOUNTER → 2024-12-07 10:58 | Outpatient (REF) | payer BC, SELFPAY ==
[2024-12-07 11:46] LABS: Urine Character Clear (Clear)
[2024-12-07 11:53] LABS: Hematocrit 40.8 % (39.0-52.0); Hemoglobin 13.8 g/dL (13.0-18.0); Mean Corp Hgb Conc. 33.8 g/dL (33.0-37.0); Mean Corpuscular Volume 100.5 fL (80.0-94.0); Nucleated Red Blood Cells % 0 % (-); Platelet Count 197 10^3/uL (130-400); Red Cell Dist. Width 12.3 % (11.5-14.5)
[2024-12-07 11:56] LABS: Urine Red Blood Cell 0-2 /HPF (0-2)
[2024-12-07 12:00] LABS: INR 1.10; PT 14.5 Sec (11.4-14.6)
[2024-12-07 12:19] LABS: ALT (SGPT) 74 U/L (0-50); AST (SGOT) 80 U/L (17-59); Albumin 3.9 g/dl (3.5-5.0); Alkaline Phosphatase 99 U/L (38-126); Amylase 76 U/L (30-110); Blood Urea Nitrogen 7 mg/dl (9-20); Calcium 9.1 mg/dl (8.4-10.2); Carbon Dioxide 25 mmol/L (22-30); Chloride 100 mmol/L (98-107); GGTP 550 U/L (15-73); Glucose 96 mg/dl (70-99); HDL Cholesterol 88 mg/dl; Iron 81 ug/dl (49-181); LDL Cholesterol, Calculated 75 mg/dl; Lipase 115 U/L (23-300); Potassium 4.1 mmol/L (3.5-5.1); Sodium 131 mmol/L (135-145); Total Protein 7.6 g/dl (6.3-8.2); Uric Acid 5.1 mg/dl (3.5-8.5); Very Low Density Lipoprotein 19 mg/dl (0-30); eGFR > 60.00
[2024-12-07 12:38] LABS: Ferritin 334.0 ng/ml (17.9-464.0)
[2024-12-07 12:49] LABS: PSA, Total - Screen 0.18 ng/ml (0.0-4.0)
[2024-12-07 18:59] LABS: Hepatitis B Surface Antigen Negative (Negative)
[2024-12-07 19:16] LABS: Hepatitis A Antibody, Total Negative (Negative); Hepatitis C Antibody Negative (Negative)
== END ==
LOC: REG 10:58
PROVIDERS: ATTENDING PHYSICIAN Family Medicine; REFERRING PHYSICIAN Physician Assistant Medical
DX: Z00.01 Encounter for general adult medical examination with abnormal findings (principal); Z71.89 Other specified counseling; Z68.23 Body mass index [BMI] 23.0-23.9, adult; F10.10 Alcohol abuse, uncomplicated; D68.69 Other thrombophilia; I10 Essential (primary) hypertension; I48.0 Paroxysmal atrial fibrillation; N41.0 Acute prostatitis; R74.8 Abnormal levels of other serum enzymes; Z12.11 Encounter for screening for malignant neoplasm of colon; L40.50 Arthropathic psoriasis, unspecified; R74.01 Elevation of levels of liver transaminase levels; Z71.3 Dietary counseling and surveillance
CPT/HCPCS: 36415; 80053; 80061; 81003; 81015; 82150; 82728; 82977; 83540; 83690; 84439; 84443; 84550; 85025; 85610; 86015; 86038; 86381; 86706; 86708; 86803; 87086; 87340; G0103